=== PATIENT | male | born 1990 | race Caucasian/White ===

== ENCOUNTER 2020-11-30 16:43 | Outpatient (REF) | payer MEDICAID, SELFPAY ==
[2020-12-03 10:57] LABS: HIV-1/2 Ag & Ab Screen Negative (Negative)
[2020-12-03 11:57] LABS: Syphilis Serology (RPR) Negative (Negative)
[2020-12-03 14:05] LABS: Chlamydia Result Negative (Negative); GC Result Negative (Negative)
== END 2020-11-30 16:44 | disposition home or self-care (01) ==
LOC: NCHCN 16:43
PROVIDERS: PCP Family Medicine; Visit Provider Internal Medicine
DX: Z11.3 Encounter for screening for infections with a predominantly sexual mode of transmission (principal); Z11.4 Encounter for screening for human immunodeficiency virus [HIV]
CPT/HCPCS: 87389; 87491; 87591; 86592

== ENCOUNTER 2021-08-13 18:14 | Outpatient (REF) | payer OTHER, MEDICAID, SELFPAY ==
[2021-08-13 15:39] LABS: Hemoglobin A1C 5.6 % (<5.7)
[2021-08-13 15:44] LABS: Calculated LDL 140 mg/dL (<100); Cholesterol 230 mg/dL (<200); HDL Cholesterol 57 mg/dL (40-60); Triglyceride 169 mg/dL (<150)
== END 2021-08-13 18:15 | disposition home or self-care (01) ==
LOC: NCHCN 18:14
PROVIDERS: PCP Family Medicine; Visit Provider Nurse Practitioner Family
DX: E66.9 Obesity, unspecified (principal); Z13.220 Encounter for screening for lipoid disorders; Z13.1 Encounter for screening for diabetes mellitus
CPT/HCPCS: 80061; 83036

== ENCOUNTER 2022-12-11 17:53 | Outpatient (REF) | payer OTHER, MEDICAID, SELFPAY ==
[2022-12-11 21:06] LABS: ALT 30 U/L (16-63); AST 22 U/L (15-37); Albumin 4.1 g/dL (3.4-5.0); Alkaline Phosphatase 77 U/L (46-116); Bilirubin, Direct 0.1 mg/dL (0.0-0.2); Bilirubin, Total 0.5 mg/dL (0.2-1.0); Total Protein 7.7 g/dL (6.4-8.2)
== END 2022-12-11 17:54 | disposition home or self-care (01) ==
LOC: NCHCN 17:53
PROVIDERS: PCP Family Medicine; Visit Provider Nurse Practitioner Family
DX: F11.21 Opioid dependence, in remission (principal)
CPT/HCPCS: 80076

== ENCOUNTER 2023-02-05 16:13 | Outpatient (REF) | payer OTHER, MEDICAID, SELFPAY ==
--- OUTSIDE RECORDS SUMMARY | 2023-02-05 16:16 | XMS_ITS | CCD ---
Author Name Unknown Address [address] [place] [address] [id number] Organization Unknown Address [address] [place] [address] [phone] Care Team Providers Care C.O.D. Audit Clerk Name Role Phone ROSALINDA COMER Attending Physician [phone] Vital Signs Unknown or Not Available. Allergies Allergy Code Allergy Type Reaction Status No Known Drug Allergies 0 No known drug allergies Active Procedures Unknown or Not Available. History of Immunizations Unknown or Not Available. Problems Problem Code Start Date Resolved Date Status Alcohol withdrawal 808855958 Active Other and unspecified alcoho l dependence, continuous drinking behavior 571691104 Act chyna Tachycardia, unspecified 5101731 Active DEPRESSIVE DISORDER 311 Activ e Unspecified drug dependence, unspecified use 794874416 Active Right lower lobe pneumonia 159156313 07/28/2021 Active Substance dependence 2981978 Acti ve Pneumonia 118160657 Active Cough 21617089 Active Left lower lobe pneumonia 324113378 Active Results Unknown or Not Available. Active Medications Medication Code Dose Units Frequency Route Modificatio n Start Date/Time Cefpodoxime Proxetil 200MG Oral Tablet 956126 1 TABLET TWICE A DAY ORAL 2022 19:23 Prescription Detail TAKE 1 TABLET ORAL TWICE A DAY Doxycycline 100MG Oral Capsule 0873583 1 CAPSULE TWICE A DAY ORAL 06/04 19:23 Prescription Detail TAKE 1 CAPSULE ORAL TWICE A DAY Medications Administered During Visit Unknown or Not Available. Encounters Unknown or Not Available. Social History Smoking Status Code Start Date End Date Current every day smoker 862069533 03/23/2004 Patient Decision Aids Unknown or Not Available. Discharge Instructions You were admitted to [facility] on 05/29/2022 16:[address] [facility] on 05/29/2022 16:11 Should you have any questions prior to discharge, please contact a member of your healthcare team. If you have left the hospital and have any questions, please contact your primary care physician. Chief Complaint and Reason For Visit Unknown or Not Available. Function Status Unknown or Not Available. Plan of Care Unknown or Not Available. Referral/Transition of Care Unknown or Not Available.
--- OUTSIDE RECORDS SUMMARY | 2023-02-05 16:17 | XMS_ITS | CCD ---
Author Name Unknown Address [address] [place] [address] [id number] Organization Unknown Address [address] [place] [address] [phone] Care Team Providers Care Black And White Printer Operator Name Role Phone GAIL GARZONTAYE Attending Physician [phone] Vital Signs Unknown or Not Available. Allergies Allergy Code Allergy Type Reaction Status No Known Drug Allergies 0 No known drug allergies Active Procedures Unknown or Not Available. History of Immunizations Unknown or Not Available. Problems Problem Code Start Date Resolved Date Status Alcohol withdrawal 304805350 Active Other and unspecified alcoho l dependence, continuous drinking behavior 619497799 Act chyna Tachycardia, unspecified 8562897 Active DEPRESSIVE DISORDER 311 Activ e Unspecified drug dependence, unspecified use 647777837 Active Right lower lobe pneumonia 152573625 07/28/2021 Active Substance dependence 4765949 Acti ve Pneumonia 137269911 Active Cough 58964699 Active Left lower lobe pneumonia 367787257 Active GERD 552158569 01/09/2022 Resolved Results Unknown or Not Available. Active Medications Medication Code Dose Units Frequency Route Modificatio n Start Date/Time Cefpodoxime Proxetil 200MG Oral Tablet 596138 1 TABLET TWICE A DAY ORAL 2022 19:23 Prescription Detail TAKE 1 TABLET ORAL TWICE A DAY Doxycycline 100MG Oral Capsule 7318490 1 CAPSULE TWICE A DAY ORAL 06/04 19:23 Prescription Detail TAKE 1 CAPSULE ORAL TWICE A DAY Medications Administered During Visit Unknown or Not Available. Encounters Encounter Diagnosis Diagnosis Code Start Date Obstructive sleep apnea (adult) (pediatric) G473 3 11/10/2021 Social History Smoking Status Code Start Date End Date Current every day smoker 037501929 03/23/2004 Patient Decision Aids Unknown or Not Available. Discharge Instructions You were admitted to [facility] on 11/10/2021 18:58 with a principal diagnosis of Obstructive sleep apnea (adult) (pediatric) You were discharged from [facility] on 11/11/2021 05:38 Should you have any questions prior to [...]
--- OUTSIDE RECORDS SUMMARY | 2023-02-05 16:17 | XMS_ITS | CCD ---
Author Name Unknown Address [address] [place] [address] [phone] Organization Unknown Address [address] [place] [address] [id number] Care Team Providers Care Sas Sql Developer Name Role Phone ROSALINDA COMER Attending Physician [phone] ROSALINDA COMER Rounding (Secondary) Physician [phone] Vital Signs Unknown or Not Available. Allergies Allergy Code Allergy Type Reaction Status No Known Drug Allergies 0 No known drug allergies Active Procedures Unknown or Not Available. History of Immunizations Unknown or Not Available. Problems Problem Code Start Date Resolved Date Status Alcohol withdrawal 667316345 Active Other and unspecified alcoho l dependence, continuous drinking behavior 355739584 Act chyna Tachycardia, unspecified 2798060 Active DEPRESSIVE DISORDER 311 Activ e Unspecified drug dependence, unspecified use 361429785 Active Right lower lobe pneumonia 225611492 07/28/2021 Active Substance dependence 6125655 Acti ve Pneumonia 440885356 Active Cough 02152415 Active Left lower lobe pneumonia 767490636 Active Results Unknown or Not Available. Active Medications Medication Code Dose Units Frequency Route Modificatio n Start Date/Time Cefpodoxime Proxetil 200MG Oral Tablet 130174 1 TABLET TWICE A DAY ORAL 2022 19:23 Prescription Detail TAKE 1 TABLET ORAL TWICE A DAY Doxycycline 100MG Oral Capsule 4500786 1 CAPSULE TWICE A DAY ORAL 06/04 19:23 Prescription Detail TAKE 1 CAPSULE ORAL TWICE A DAY Medications Administered During Visit Unknown or Not Available. Encounters Encounter Diagnosis Diagnosis Code Start Date Obstructive sleep apnea syndrome 33333502 02/28/2022 Social History Smoking Status Code Start Date End Date Current every day smoker 544674792 03/23/2004 Patient Decision Aids Unknown or Not Available. Discharge Instructions You were admitted to [facility] on 02/28/2022 18:08 with a principal diagnosis of Obstructive sleep apnea (adult) (pediatric) You were discharged from [facility] on 02/28/2022 18:10 Should you have any questions prior to [...]
--- OUTSIDE RECORDS SUMMARY | 2023-02-05 16:17 | XMS_ITS | CCD ---
Author Name Unknown Address [address] [place] [address] [id number] Organization Unknown Address [address] [place] [address] [phone] Care Team Providers Care Program Director Substance Abuse Name Role Phone ROSALINDA COMER Attending Physician [phone] ROSALINDA COMER Rounding (Secondary) Physician [phone] Vital Signs Unknown or Not Available. Allergies Allergy Code Allergy Type Reaction Status No Known Drug Allergies 0 No known drug allergies Active Procedures Unknown or Not Available. History of Immunizations Unknown or Not Available. Problems Problem Code Start Date Resolved Date Status Alcohol withdrawal 936402158 Active Other and unspecified alcoho l dependence, continuous drinking behavior 999602296 Act chyna Tachycardia, unspecified 0179153 Active DEPRESSIVE DISORDER 311 Activ e Unspecified drug dependence, unspecified use 458585538 Active Right lower lobe pneumonia 642241061 07/28/2021 Active Substance dependence 1466175 Acti ve Pneumonia 865412816 Active Cough 14317891 Active Left lower lobe pneumonia 087226324 Active GERD 638411104 01/09/2022 Resolved Results Unknown or Not Available. Active Medications Medication Code Dose Units Frequency Route Modificatio n Start Date/Time Cefpodoxime Proxetil 200MG Oral Tablet 423159 1 TABLET TWICE A DAY ORAL 2022 19:23 Prescription Detail TAKE 1 TABLET ORAL TWICE A DAY Doxycycline 100MG Oral Capsule 5277443 1 CAPSULE TWICE A DAY ORAL 06/04 19:23 Prescription Detail TAKE 1 CAPSULE ORAL TWICE A DAY Medications Administered During Visit Unknown or Not Available. Encounters Encounter Diagnosis Diagnosis Code Start Date Snoring R0683 09/04/2021 Social History Smoking Status Code Start Date End Date Current every day smoker 282449115 03/23/2004 Patient Decision Aids Unknown or Not Available. Discharge Instructions You were admitted to [facility] on 09/04/2021 11:19 with a principal diagnosis of Snoring You were discharged from [facility] on 09/04/2021 11:19 Should you have any questions prior to [...]
--- OUTSIDE RECORDS SUMMARY | 2023-02-05 16:17 | XMS_ITS | CCD ---
Author Name Unknown Address [address] [place] [address] [id number] Organization Unknown Address [address] [place] [address] [phone] Care Team Providers Care Director Data Management Name Role Phone URIEL PETIT Attending Physician [phone] URIEL PETIT Er Physician [phone] TREY Noble Registered Nurse [phone] Vital Signs Vital Sign Value Unit Date/Time Recent/Initial ? BMI (Body Mass Index) 24.41 kg/m^2 07/28/2021 17: 55 Initial VS Weight Measured 180 lbs 07/28/2021 17:55 Ini tial VS Height 72 in 07/28/2021 17:55 Initial VS BSA (Body Surface Area) 2.04 m^2 07/28/2021 1 7:55 Initial VS BP Systolic 131 mmHg 07/28/2021 17:55 Initial VS BP Diastolic 79 mmHg 07/28/2021 17:55 Initia l VS Respiratory Rate 20 bpm 07/28/2021 17:55 In itial VS Heart Rate 98 bpm 07/28/2021 17:55 Initial VS O2 % BldC Oximetry 97 % 07/28/2021 17:55 Initial VS Body Temperature 37.5 degrees 07/28/2021 17:55 In itial VS Respiratory Rate 18 bpm 07/28/2021 19:[address] Recent VS Heart Rate 100 bpm 07/28/2021 19:15 Most Rec ent VS O2 % BldC Oximetry 96 % 07/28/2021 19:15 Most Recent VS Allergies Allergy Code Allergy Type Reaction Status No Known Drug Allergies 0 No known drug allergies Active Procedures Unknown or Not Available. History of Immunizations Unknown or Not Available. Problems Problem Code Start Date Resolved Date Status Alcohol withdrawal 121838723 Active Other and unspecified alcoho l dependence, continuous drinking behavior 282708602 Act chyna Tachycardia, unspecified 1450797 Active DEPRESSIVE DISORDER 311 Activ e Unspecified drug dependence, unspecified use 661047555 Active Right lower lobe pneumonia 386489844 07/28/2021 Active Substance dependence 4097349 Acti ve Pneumonia 744309327 Active Cough 76168805 Active Left lower lobe pneumonia 136980408 Active GERD 962994505 01/09/2022 Resolved Results ABRANMONSE DE PAZX* - Krystal ect Date/Time: 07/28/2021 18:30 Test Name Code Test Result Test Units Test Ref Mindy mahajan [facility]- 81078-4 SYMPTOMS N/A SARS COV2 RNA: 13298-8 NEGATIVE N/A REFERENCE RANGE: NEGAT Active Medications Medications Administered During Visit Medication Dose Units Frequency Route Date/Time of Last Dose ACETAMINOPHEN TABLET: 325MG 975 MG X1 PO 07/28/2021 19:00 IBUPROFEN TABLET: 600MG 600 MG X1 PO 07/28/2021 19:00 AZITHROMYCIN TABLET: 250MG 500 MG X1 PO 07/28/2021 19:00 PredniSONE TABLET: 20MG 60 MG X1 PO 07/28/2021 20:12 Encounters Encounter Diagnosis Diagnosis Code Start Date Pneumonia, unspecified organism J189 07/28/2021 Social History Smoking Status Code Start Date End Date Current every day smoker 309673420 03/23/2004 Patient Decision Aids Patient Decision Aid Pneumonia Discharge Instructions You were admitted to [facility] on 07/28/2021 17:44 with a principal diagnosis of Pneumonia, unspecified organism You had the following tests done:ABRAN LINDERONIX* You were discharged from [facility] on 07/28/2021 19:15 Should you have any questions prior to discharge, please contact a member of your healthcare team. If you have left the hospital and have any questions, please contact your primary care physician. Chief Complaint and Reason For Visit Chief Complaint Date of Onset COVID LIKE SYMPTOMS Function Status Unknown or Not Available. Plan of Care Unknown or Not Available. Referral/Transition of Care Unknown or Not Available.
--- OUTSIDE RECORDS SUMMARY | 2023-02-05 16:17 | XMS_ITS | CCD ---
Author Name Unknown Address [address] [place] [address] [phone] Organization Unknown Address [address] [place] [address] [phone] Care Team Providers Care Sports Management Professor Name Role Phone ROSALINDA COMER Attending Physician [phone] ROSALINDA COMER Rounding (Secondary) Physician [phone] Vital Signs Unknown or Not Available. Allergies Allergy Code Allergy Type Reaction Status No Known Drug Allergies 0 No known drug allergies Active Procedures Unknown or Not Available. History of Immunizations Unknown or Not Available. Problems Problem Code Start Date Resolved Date Status Alcohol withdrawal 356276377 Active Other and unspecified alcoho l dependence, continuous drinking behavior 301994419 Act chyna Tachycardia, unspecified 7171710 Active DEPRESSIVE DISORDER 311 Activ e Unspecified drug dependence, unspecified use 813583746 Active Right lower lobe pneumonia 655657652 07/28/2021 Active Substance dependence 3911820 Acti ve Pneumonia 289629797 Active Cough 47710444 Active Left lower lobe pneumonia 348461928 Active GERD 058839925 01/09/2022 Resolved Results Unknown or Not Available. Active Medications Medication Code Dose Units Frequency Route Modificatio n Start Date/Time Cefpodoxime Proxetil 200MG Oral Tablet 825461 1 TABLET TWICE A DAY ORAL 2022 19:23 Prescription Detail TAKE 1 TABLET ORAL TWICE A DAY Doxycycline 100MG Oral Capsule 6755016 1 CAPSULE TWICE A DAY ORAL 06/04 19:23 Prescription Detail TAKE 1 CAPSULE ORAL TWICE A DAY Medications Administered During Visit Unknown or Not Available. Encounters Encounter Diagnosis Diagnosis Code Start Date Follow-up consultation [id number] Social History Smoking Status Code Start Date End Date Current every day smoker 500535251 03/23/2004 Patient Decision Aids Unknown or Not Available. Discharge Instructions You were admitted to [facility] on 11/27/2021 14:39 with a principal diagnosis of Person consulting for explanation of examination or test findings You were discharged from [facility] on 11/27/2021 14:39 Should you have any questions prior to [...]
--- OUTSIDE RECORDS SUMMARY | 2023-02-05 16:17 | XMS_ITS | CCD ---
Author Name Unknown Address [address] [place] [address] [phone] Organization Unknown Address [address] [place] [address] [phone] Care Team Providers Care Concrete Floater Name Role Phone NAZARIO VAZQUEZ, NABEEL Jones Attending Physician [phone] DARCY MCGUIRE Er Physician [phone] Vital Signs Unknown or Not Available. Allergies Allergy Code Allergy Type Reaction Status No Known Drug Allergies 0 No known drug allergies Active Procedures Unknown or Not Available. History of Immunizations Unknown or Not Available. Problems Problem Code Start Date Resolved Date Status Alcohol withdrawal 628991133 Active Other and unspecified alcoho l dependence, continuous drinking behavior 472692923 Act chyna Tachycardia, unspecified 3596407 Active DEPRESSIVE DISORDER 311 Activ e Unspecified drug dependence, unspecified use 763206023 Active Right lower lobe pneumonia 602395259 07/28/2021 Active Substance dependence 2323708 Acti ve Pneumonia 560450697 Active Cough 41055905 Active Left lower lobe pneumonia 545626661 Active GERD 754532883 01/09/2022 Resolved Results ABRAN ALEXANDREID RHELEEANNX - Colle ct Date/Time: 09/16/2020 11:38 Test Name Code Test Result Test Units Test Ref Rang e SOURCE= Anterior nasal N/A Tier- INPATIENT/ED N/A SARS COV2 RNA: 15489-3 NEGATIVE N/A REFERENCE RANGE: NEGAT STREP GROUP A ANTIGEN ASSAY - Collect Date/Time: 09/16/2020 11:07 Test Name Code Test Result Test Units Test Ref Rang e GRP A STREP ANTIGEN 6556-5 NOT DETECTED N/A Active Medications Medication Code Dose Units Frequency Route Modificatio n Start Date/Time Cefpodoxime Proxetil 200MG Oral Tablet 658405 1 TABLET TWICE A DAY ORAL 2022 19:23 Prescription Detail TAKE 1 TABLET ORAL TWICE A DAY Doxycycline 100MG Oral Capsule 3168504 1 CAPSULE TWICE A DAY ORAL 06/04 19:23 Prescription Detail TAKE 1 CAPSULE ORAL TWICE A DAY Medications Administered During Visit Unknown or Not Available. Encounters Encounter Diagnosis Diagnosis Code Start Date Acute pharyngitis, unspecified J029 0 09/16/2020 Social History Smoking Status Code Start Date End Date Current every day smoker 903991932 03/23/2004 Patient Decision Aids Unknown or Not Available. Discharge Instructions You were admitted to [facility] on 09/16/2020 10:34 with a principal diagnosis of Acute pharyngitis, unspecified You had the following tests done:[facility] [employer] RHEONIXSTREP GROUP A ANTIGEN ASSAY You were discharged from [facility] on 09/16/2020 12:19 Should you have any questions prior to discharge, please contact a member of your healthcare team. If you have left the hospital and have any questions, please contact your primary care physician. Chief Complaint and Reason For Visit Chief Complaint Date of Onset SORE THROAT Function Status Unknown or Not Available. Plan of Care Unknown or Not Available. Referral/Transition of Care Unknown or Not Available.
[2023-02-05 20:33] LABS: ALT 45 U/L (16-63); AST 36 U/L (15-37); Albumin 4.2 g/dL (3.4-5.0); Alkaline Phosphatase 64 U/L (46-116); Bilirubin, Direct 0.1 mg/dL (0.0-0.2); Bilirubin, Total 0.6 mg/dL (0.2-1.0); Total Protein 7.9 g/dL (6.4-8.2)
== END 2023-02-05 16:14 | disposition home or self-care (01) ==
LOC: NCHCN 16:13
PROVIDERS: PCP Family Medicine; Visit Provider Nurse Practitioner Family
DX: F11.21 Opioid dependence, in remission (principal)
CPT/HCPCS: 80076

== ENCOUNTER 2023-09-17 21:14 | Outpatient (REF) | payer OTHER, SELFPAY ==
[2023-09-17 21:57] LABS: ALT 36 U/L (16-63); AST 22 U/L (15-37); Albumin 4.1 g/dL (3.4-5.0); Alkaline Phosphatase 86 U/L (46-116); Bilirubin, Direct 0.1 mg/dL (0.0-0.2); Bilirubin, Total 0.25 mg/dL (0.2-1.0); Total Protein 8.1 g/dL (6.4-8.2)
== END 2023-09-17 21:15 | disposition home or self-care (01) ==
LOC: NCHCN 21:14
PROVIDERS: PCP Family Medicine; Visit Provider Nurse Practitioner Family
DX: F11.21 Opioid dependence, in remission (principal)
CPT/HCPCS: 80076

== ENCOUNTER 2024-03-25 21:54 | Outpatient (REF) | payer OTHER, SELFPAY ==
[2024-03-25 22:26] LABS: ALT 36 U/L (16-63); AST 28 U/L (15-37); Albumin 4.4 g/dL (3.4-5.0); Alkaline Phosphatase 76 U/L (46-116); Anion Gap 9.4 mmol/L (3-11); BUN 10 mg/dL (7-18); Bilirubin, Total 0.49 mg/dL (0.2-1.0); CO2 28.6 mmol/L (21.0-32.0); CREATININE 0.7 mg/dL (0.70-1.30); Calcium 9.3 mg/dL (8.5-10.1); Calculated LDL 128 mg/dL (<100); Chloride 103 mmol/L (98-107); Cholesterol 225 mg/dL (<200); Glucose 101 mg/dL (74-106); HDL Cholesterol 58 mg/dL (40-60); Potassium 4.1 mmol/L (3.5-5.1); Sodium 141 mmol/L (136-145); Triglyceride 199 mg/dL (<150)
== END 2024-03-25 21:55 | disposition home or self-care (01) ==
LOC: NCHCN 21:54
PROVIDERS: PCP Family Medicine; Visit Provider Nurse Practitioner Family
DX: Z51.81 Encounter for therapeutic drug level monitoring (principal)
CPT/HCPCS: 80053; 80061

== ENCOUNTER 2024-04-29 12:06 | Outpatient (REF) | payer OTHER, SELFPAY | END 2024-04-29 12:07 | disposition home or self-care (01) | LOC: NCHCN 12:06 | PROVIDERS: PCP Family Medicine; Visit Provider Physician Assistant | DX: J02.9 Acute pharyngitis, unspecified (principal) | CPT/HCPCS: 87070 ==